=== PATIENT | female | born 1970 | race Caucasian/White ===

== ENCOUNTER → 2017-10-16 | Outpatient (CLI) | payer OTHER ==
[2014-06-25 17:50] VITALS: BMI 30.0
[~2017-10-16] MED LIST: DIA5 PO; Ibuprofen PO; LEVO137T23 PO; METF-410 PO; METH4TAB66 PO; METXR500 PO; OXYC-865 PO; PER PO; SIMV-49 PO
--- NOTE | 2017-10-17 14:36 | RADIOLOGY IMAGING REPORT ---
FACILITY: [facility] PATIENT NAME: WARD WILL : [id number] MR: [id number] V: [id number] EXAM DATE: ORDERING PHYSICIAN: ROSI ARRINGTON TECHNOLOGIST: Flor Andrews PROCEDURE:BILATERAL DIGITAL SCREENING MAMMOGRAM WITH CAD ASSISTED INTERPRETATION & 3D TOMOSYNTHESIS COMPARISON:Prior mammogram 06/04/15. INDICATIONS:SCREENING FINDINGS: A small to moderate amount of fibroglandular tissue is seen throughout the breasts. The parenchymal pattern has remained stable allowing for difference in mammographic technique & patient positioning. There is no evidence of malignant appearing mass, malignant appearing calcifications or other secondary sign of malignancy in either breast. A small clip is identified in the medial inferior Right breast. DIAGNOSTIC CATEGORY 2--BENIGN FINDING. RECOMMENDATIONS: ROUTINE MAMMOGRAM AND CLINICAL EVALUATION. IMPRESSION: BIRADS 2: Benign finding No significant abnormality is seen Dictated by: Paulette Cooper M.D. on 10/16/2017 at 17:10 Transcribed by: HINA on 10/17/2017 at 9:17 Approved by: Paulette Cooper M.D. on 10/17/2017 at 14:34 [facility]
== END ==
LOC: MAMO 00:39
PROVIDERS: ATTEND Nurse Practitioner Family
DX: Z12.31 Encounter for screening mammogram for malignant neoplasm of breast (principal)
CPT/HCPCS: 77063; 77067

== ENCOUNTER → 2017-11-07 | Outpatient (CLI) | payer OTHER ==
[2014-06-25 17:50] VITALS: BMI 30.0
[~2017-11-07] MED LIST changes: +BARIUM SULFATE 176 GM BTL PO ONE; +BARIUM SULFATE 340 GM POWD ONE; +METF750T25 PO
--- NOTE | 2017-11-07 16:56 | RADIOLOGY IMAGING REPORT ---
FACILITY: [facility] PATIENT NAME: Angela Ricci : 1970 MR: [id number] V: [id number] EXAM DATE: ORDERING PHYSICIAN: JIM BARTLETT TECHNOLOGIST: Location: [facility] Patient: Angela Ricci : 1970 Visit/Account:[id number] Date of Sevice: 11/07/2017 Exam type: ESOPHAGRAM History: Difficulty swallowing food Comparison: None. Findings: Double contrast esophagram was performed with thick and thin barium. Moderate to large amount of gas tric esophageal reflux was observed. There is at least moderate narrowing at the lower esophageal sp hincter. Initially a 12 mm barium tablet would not pass into the stomach although following multiple sips of water and barium the tablet did eventually pass into the stomach through the narrowed lower esophageal sphincter. No mucosal erosions were identified. The fluoroscopy dose area product was 35 7.76 micro-Abbott per meter squared IMPRESSION: 1. There is a moderate to large amount of gastroesophageal reflux and at least moderate narrowing at the lower esophageal sphincter. Initially a 12 mm barium tablet would not pass into the stomach alt sanjeev following multiple sips of water and barium the tablet did eventually pass through the lower es ophageal sphincter. Report Dictated By: Paulette Cooper MD at 11/07/2017 4:49 PM Report E-Signed By: Paulette Cooper MD at 11/07/2017 4:52 PM WSN:[email or web address]
== END ==
LOC: RAD 02:16
PROVIDERS: ATTEND Surgery
DX: K21.9 Gastro-esophageal reflux disease without esophagitis (principal); K22.2 Esophageal obstruction
CPT/HCPCS: 74220

== ENCOUNTER 2019-02-05 00:16 | Day surgery (SDC) | payer OTHER ==
[2014-06-25 17:50] VITALS: Ht 162.6 cm; Wt 80.7 kg
[~2019-02-05] VITALS: Ht 162.6 cm; Wt 80.7 kg
[~2019-02-05 00:16] MED LIST changes: -BARIUM SULFATE 176 GM BTL PO ONE; -BARIUM SULFATE 340 GM POWD ONE; -METF-410 PO; +METF-450 PO; +OMEP40CA48 PO
[2019-02-05] MEDS ORDERED: LIDOCAINE/SOD BICARB 8.4% SYR ID ONE (06:30)
[2019-02-05] MEDS ORDERED: NORMOSOL R SOLN(*) 1000 ML BAG 1,000 ML IV PRN (06:30)
[2019-02-05 06:34] VITALS: BP 104/87
[2019-02-05] MEDS ORDERED: PROPOFOL EMUL(*) 10MG/ML 20 ML 20 ML ONE ×3 (07:10→07:58)
[2019-02-05 08:25] VITALS: BP 99/64
--- NOTE | 2019-02-05 08:42 | Short(Outpt) Discharge Summary ---
Discharge Summary Reason for Hosp/Final Diag: (1) Dysphagia Status: Chronic Hospital Course & Plan: EGD with esophageal dilation completed without problems. (2) Colon cancer screening Status: Chronic Hospital Course & Plan: Colonoscopy with polypectomy x1 completed without problems. Departure Discharge to: Home, Self Care Discharge Instructions Home Meds Reported Medications Omeprazole (OMEPRAZOLE) 40 Mg Capsule.dr, 40 MG PO QDAY, CAP 01/30/19 Metformin Hcl (METFORMIN HCL ER) 750 Mg Tab.er.24h, 1 TAB PO BID, TAB 11/07/17 Levothyroxine Sodium (LEVOTHYROXINE SODIUM) 137 Mcg Tablet, 137 MCG PO QDAY 06/17/14 Simvastatin (SIMVASTATIN) 20 Mg Tablet, 1 TAB PO HS, TAB 06/17/14 Discontinued Scripts [Ibuprofen] 800 MG TAB No Conflict Check, 800 MG PO Q8H PRN for PAIN, #30 TAB 0 Refills Prov:MARIO ADAM MD 06/25/14 Diet: Regular Activity: As Tolerated Special Instructions: Your upper endoscopy and colonoscopy were completed without any problems and your prep was excellent (Good Job!!). I didn't find any abnormalities in your upper GI tract except for a mild narrowing of your lower esophagus but it was wide open and although I passed the biggest dilator through your esophagus, the narrowing was too big to be stretchedd. I found a single small polyp in your colon and I removed it and sent it to pathology. My office will call you in the next week or two to let you know what the polyp is and when your next colonoscopy should be (either 5 or 10 years) depending on pathology results. Problem Qualifiers (1) Dysphagia: Dysphagia type: esophageal phase Qualified Codes: R13.10 - Dysphagia, unspecified JIM BARTLETT MD Feb 05, 2019 08:42
[2019-02-05 08:45] VITALS: BP 107/81
[2019-02-05 09:15] VITALS: BP 128/89
[2019-02-05 09:23] VITALS: BP 105/80
[2019-02-05 09:25] VITALS: BP 115/78
== END 2019-02-05 09:45 | disposition home or self-care (01) ==
LOC: OR 00:16
PROVIDERS: ATTEND Surgery
DX: K22.2 Esophageal obstruction (principal); K21.9 Gastro-esophageal reflux disease without esophagitis; K63.5 Polyp of colon; E03.9 Hypothyroidism, unspecified; E11.9 Type 2 diabetes mellitus without complications; Z79.84 Long term (current) use of oral hypoglycemic drugs
CPT/HCPCS: 00813; 36416; 43248; 45380; 82948; 88305; J2704